=== PATIENT | male | born 1995 | race Caucasian/White ===

== ENCOUNTER 2019-08-24 23:50 | Emergency (ER) | payer OTHER ==
[~2019-08-24] VITALS: Ht 190.5 cm; Wt 94.8 kg
[2019-08-24 23:59] VITALS: Ht 190.5 cm; Wt 94.8 kg
[2019-08-25 00:40] VITALS: BP 131/91
== END 2019-08-25 00:30 | disposition home or self-care (01) ==
LOC: ED 23:50
DX: J45.909 Unspecified asthma, uncomplicated (principal)
CPT/HCPCS: Q0092